=== PATIENT | female | born 1965 | race Caucasian/White ===

== ENCOUNTER 2018-07-09 09:39 | Day surgery (SDC) | payer OTHER ==
[2018-07-06 14:52] LABS: Urine Appearance CLEAR; Urine Bilirubin NEGATIVE (NEG); Urine Blood NEGATIVE (NEG); Urine Color YELLOW; Urine Glucose NEGATIVE (NEG); Urine Protein NEGATIVE (NEG); Urine Specific Gravity 1.025 (1.005-1.030); Urine Urobilinogen 0.2 mg/dL (0.2-1.0)
[2018-07-06 14:55] LABS: Urine Microscopic Reflex NO UMIC
[2018-07-06 14:57] LABS: Absolute Lymphocytes (CBC) 2.4 K/uL (0.7-4.9); Absolute Monocytes 0.7 K/uL (0.1-1.3); Absolute Neutrophil 6.5 K/uL (1.8-8.0); Basophils % 0.3 % (0-1.3); Hematocrit 41.4 % (36.0-45.0); Lymphocytes % 25.1 % (15.3-44.8); MCH 27.9 pg (27.0-35.0); MCV 83.6 fL (80-100); Monocytes % 6.8 % (3.3-12.3); RBC Red Blood Cell Count 4.95 M/uL (3.86-4.86)
[2018-07-06 15:11] LABS: CKMB Creatine Kinase MB < 1.0 ng/mL (0.3-3.6); Creatine Phosphokinase 53 U/L (26-192); Troponin I < 0.02 ng/mL (0.0-0.045)
--- NOTE | 2018-07-06 15:38 | EKG ---
Test Date: 2018-07-06 Test Time: 14:00:29 Administrative Resources Associate: LEATHA MEASUREMENT RESULTS: Intervals: Rate: 78 ME: 124 QRSD: 84 QT: 374 QTc: 426 [place]: P: 18 ME: 124 QRS: -5 T: 49 INTERPRETIVE STATEMENTS: Normal sinus rhythm Normal ECG No previous ECG available for comparison Electronically Signed On 07-06-18 15:37:53 CDT by Tanmay Laird
[2018-07-09 10:08] LABS: Specific Gravity 1.025 (1.005-1.030)
[2018-07-09] MEDS ORDERED: SCOPOLAMINE HYDROBROMIDE PATCH TD ONE (10:20)
[2018-07-09] MEDS ORDERED: Ringers Lactate 1,000 ML IV ONE ×3 (10:20→13:35)
[2018-07-09] MEDS ORDERED: KETOROLAC 30 MG/ML INJ ONE ×2 (10:51→15:26)
[2018-07-09] MEDS ORDERED: MORPHINE 4 MG/ML SYR ONE (11:02)
[2018-07-09] MEDS ORDERED: PROPOFOL 200 MG/20 ML VIAL IV ONE (11:07)
[2018-07-09] MEDS ORDERED: ROCURONIUM 50 MG/5 ML VIAL IV ONE (11:07)
[2018-07-09] MEDS ORDERED: MIDAZOLAM HCL 2 MG/2 ML INJ ONE (11:08)
[2018-07-09] MEDS ORDERED: ONDANSETRON HCL 40 MG/20 ML VIAL ONE (11:08)
[2018-07-09] MEDS ORDERED: DEXAMETHASONE 10 MG/ML VIAL ONE (11:08)
[2018-07-09] MEDS ORDERED: FENTANYL CITR 250 MCG/5 ML ONE (11:08)
[2018-07-09] MEDS ORDERED: LIDOCAINE 2% MPF 5 ML VIAL ONE (11:08)
[2018-07-09] MEDS: CEFAZOLIN/SWI 2gm 2 GM/20 ML SYR IV SCH ×2 (11:56→12:10)
[2018-07-09] MEDS: NA CHLORIDE 0.9% 1,000 ML ONE ×2 (11:56→12:10)
[2018-07-09] MEDS ORDERED: EPHEDRINE SULF 50 MG/10 ML SYR ONE (12:20)
[2018-07-09] MEDS ORDERED: NA CHLORIDE 0.9% 1,000 ML ONE (13:40)
[2018-07-09] MEDS ORDERED: FENTANYL CITR 100 MCG/2 ML ONE (14:29)
[2018-07-09] MEDS ORDERED: CEFAZOLIN/SWI 1gm 1 GM/10 ML SYR ONE (15:14)
[2018-07-09] MEDS ORDERED: METOCLOPRAMIDE 10 MG/2mL INJ ONE (16:33)
[2018-07-09] MEDS ORDERED: ONDANSETRON 4 MG/2 ML VIAL ONE (16:42)
[2018-07-09] MEDS ORDERED: HYDROCODONE/APAP 5/325 MG TAB ONE (18:09)
--- NOTE | 2018-07-10 09:01 | OP ---
Date of Procedure: 07/09/2018 Surgeon: Rashmi Rao MD Doorperson Or Luggage Porter: Tena Mathis. Preoperative Diagnoses: Menorrhagia, pelvic pain, irritative bladder symptoms, mostly overactive jere dder. Postoperative Diagnoses: Menorrhagia, pelvic pain, irritative bladder symptoms, mostly overactive bl adder, adhesions of the omentum, bilateral hydrosalpinges, and sigmoid bowel adhesions den se bladder adhesions. Procedures Performed: 1.Total laparoscopic hysterectomy, bilateral salpingo-oophorectomy. 2.Lysis of omental adhesions and sigmoid adhesions. 3.Vaginal morcellation of the specimen and lysis of omental and sigmoid adhesions. Anesthesia: General endotracheal. Specimens: Uterus, tubes and ovaries, bilateral. Estimated Blood Loss: Less than 100. Condition: Stable. Indications: The patient is a 52-year-old who had heavy periods, pelvic pain, and mixed incontinence . This lady has had an ablation in September of last year after her endometrial curettings were negat nitin, and there was an endometrial polyp. She is overweight and has increased risk for atypia or wendy gnancy. Few months after the ablation, her bleeding recurred at about month 3. 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 So at this time, we discussed the options of depot medroxyprogesterone acetate or a hyster ectomy since she is already post ablation with 2 prior cesareans. The patient desired to have defini tive treatment with hysterectomy. We also talked about removal of tubes and ovaries as needed, and s he was inclined to have her ovaries removed. Description Of Procedure: After informed consent was verified, she was brought to the OR. A 2 g of Ancef was given preop. SCDs were placed. The patient was placed in a supine fashion on the operatin g table. After general anesthesia was given in an endotracheal fashion, she was placed in a dorsal l ithotomy position using Bharath stirrups. The vulva, vagina, perineum, and abdomen were all prepped an d draped in a sterile fashion. Gilliam was placed to drain the bladder, and attempt was made to sound the uterus, but due to the scar, most likely this was difficult and so I wanted to do this under dire ct visualization with the camera, so aborted this, went back up. A 1 cm infraumbilical incision was made with a scalpel using the open laparoscopy technique. The fascia was incised and cut. Edges wer e tagged. The patient's peritoneum was picked up and entered bluntly and S retractors placed. Hasso n introduced. Site of entry was checked, and it was unremarkable. Upper abdominal surface was unrem arkable as well as lower abdominal surface. Just below the umbilicus, there was a large thick omenta l adhesion. There were also adhesions in the midline going towards the bladder and all th e way to the left lower quadrant. These were dense and in multiple layers. These were omental adhes ions, and they were visualized after placing the scope. A 5 mm left lower quadrant port was placed u nder direct vision. No other ports could be placed due to the presence of adhesions, so I went ahead and did this taking down the adhesions in a systematic fashion in a push-spread technique creating w indows and cutting. Once the extensive lysis of adhesions was done here on the omentum, then the adh esions were taken down on the sigmoid colon to the lateral wall, to the infundibulopelvic ligament, a nd to the both tubes. The adhesions on the right side were minimal and were easily taken down. Ther e was a distal hydrosalpinx that was on the left side. There were very dense adhesions all the way i nto the left mesosalpinx. These were all released and normal anatomy was restored. The tube appeare d to be completely devascularized at this point on the left side. There were dense adhesions to the bladder anteriorly. These adhesions were taken down by creating mu ltiple windows and taking them down with the LigaSure as well as sharp scissors. Once the entire jeremy brent was attached to the anterior abdominal wall, the bladder was inspected and the bladder flap was d issected to recreate the planes needed for surgery. Once this was done, the left utero-ovarian ligam ent, mesosalpinx, and left round ligament were taken down. The posterior peritoneum was dissected al l the way to the left uterosacral lateral aspect. This allowed the ureter to fall away. Both the ur eters were traced from the pelvic brim to the ureteric tunnel, and their courses were unaltered. Then, the broad ligament was skeletonized to expose the vessels the anterior vaginal wall was dissected. Precervical fascia was visualized by opening up with push-spread technique and creati ng windows at the level of the bladder flap. Once this was done, the bladder was taken down from the left side for most of the extent that it could be done. Then, on the opposite side, utero-ovarian l igament was taken down and the broad ligament here was taken down round ligament. This wa s also taken down. Then, posterior leaf was dissected to separate of the ureter. Once th is was done, then the bladder flap was cleared up. The bladder was dissected at least 5 cm from wher e it was attached to the uterus. This was done after creating a window behind the adhesion. The adh esions were well visualized as well as the bladder with the help of anatomy. Then, the bladder adhes ions were taken down. The bladder adhesions caused a lot of anatomical distortion at this site. So, there was difficulty visualizing the VCare cup. VCare cup was placed at a later time onc e the laparoscope was introduced. An 18-Liberian dilator was used gradually from size 8, then was dedrick daniel to this point that I was able to place the VCare manipulator without any problems while visualizi ng directly with the help of the scope. Once this was done, we went on to open the posterior broad ligament to the right uterosacral, then di ssecting the vessels and skeletonizing the broad ligament. The bladder flap was detached from its at tachment to the uterus with the help of the bipolar LigaSure by creating a plane distal to the adhesi on where the normal anatomical plane was. Once the adhesions were taken down off the bladder, then v essels were taken down on the right side then on the left side. Initially, there was much difficulty figuring out which the VCare cup was. So, I performed a circumferential cut with a monopolar hook allie cardenas fully understanding that this could be still the cervix and it was. This was left still on the VCare manipulator and then by pushing the placement of the cup, the bladder was dissected down another 2 cm then I was able to remove the cervix with the help of the cutting along the ___ on the VCare cup. Once this was done in a circumferential fashion, then the specimen was detache d prior to the circumferential colpotomy. Both the uterine vessels were taken down as well as the ca rdinal ligaments. The uterine artery on the left side started to bleed and so clips x2 were placed o n this. There was excellent hemostasis. Once the surgery was done to detach the specimen, there wer e 2 specimens, one is the distal cervix and the other is the proximal cervix over the uterus. Then, the left ovary and tube were removed by dissecting the broad ligament and taking down the IP ligament similar dissection opposite side. The distal part of the tube had to be resected since i t was very swollen in order for me to see and perform the surgery. Once this was done, all specimens were handed out for permanent pathology and labeled appropriately. After going vaginally, I used 4 mass clamps to hold onto the specimen and morcellated physically with a #10 blade in a circumferential fashion posteriorly delivered the uterus. Once this was done, abou t 25 minutes to 30 minutes were spent on the morcellation as this patient was big. The small rim of the vaginal cuff appeared to be fairly narrow. Once all this was done, the entire specimen was remov ed. All the ovaries and tubes were retrieved as well. There was good hemostasis on the vaginal cuff . There was a slight posterior wall midline tear. This appeared to be bleeding and so this was to b e repaired along with the colpotomy closure. So, 0 Vicryl suture was taken. After thorough irrigati on and suction of all the pedicles, there was slight bleeding at the left infundibulopelvic ligament pedicle and this was cauterized by picking it up and cauterizing it with the bipolar LigaSure. Once the vaginal cuff was well visualized, two 0 Vicryls were placed and 2 [id number] in the middle for good closure and apposition and excellent hemostasis. No evidence of any electrical, mechanical, or thermal injury to the ureters. While placing the left lower quadrant instrument accidentally there was a slight sigmoid epiploic injury. No evidence of any bowel problems. S o, I went ahead and finished the case. Gas was desufflated after thorough irrigation and suction. A ll pedicles were photographed. Trocars were removed under direct vision. There were 4 trocars in th e left lower quadrant and right lower quadrant were two, 5 mm and then 10 mm was suprapubic. Once al l these was removed, the fascia at the umbilicus was closed with the help of a 3-0 Vicryl [id number] fashion, 2 in simple fashion to close the entire opening. The suprapubic could not b e closed. All the skin incisions were closed with the help of 4-0 Monocryl. Instrument, needle, and sponge counts were done and were correct at the end of the case. The vaginal occlusion bulb ___ as well as the Gilliam was removed, and the patient was recovered from anesthesia and taken to PACU in stable cond ition. STACIE Voice ID: [id number] Report ID: [id number]
== END 2018-07-09 19:15 | disposition home or self-care (01) ==
LOC: OR 09:39
PROVIDERS: ATTEND Obstetrics & Gynecology
PROC: 0UT24ZZ Resection of Bilateral Ovaries, Percutaneous Endoscopic Approach (ICD-10-PCS; 2018-07-09)
PROC: 0UT74ZZ Resection of Bilateral Fallopian Tubes, Percutaneous Endoscopic Approach (ICD-10-PCS; 2018-07-09)
PROC: 0DNU4ZZ Release Omentum, Percutaneous Endoscopic Approach (ICD-10-PCS; 2018-07-09)
PROC: 0UT94ZZ Resection of Uterus, Percutaneous Endoscopic Approach (ICD-10-PCS; principal; 2018-07-09 11:30)
DX: N92.1 Excessive and frequent menstruation with irregular cycle (principal); N70.11 Chronic salpingitis; N83.12 Corpus luteum cyst of left ovary; N83.11 Corpus luteum cyst of right ovary; N72 Inflammatory disease of cervix uteri; N88.8 Other specified noninflammatory disorders of cervix uteri; N83.8 Other noninflammatory disorders of ovary, fallopian tube and broad ligament; K66.0 Peritoneal adhesions (postprocedural) (postinfection); N32.81 Overactive bladder; N32.89 Other specified disorders of bladder; R07.89 Other chest pain; E66.01 Morbid (severe) obesity due to excess calories; Z68.38 Body mass index [BMI] 38.0-38.9, adult; Z90.49 Acquired absence of other specified parts of digestive tract; Z80.1 Family history of malignant neoplasm of trachea, bronchus and lung; Z83.3 Family history of diabetes mellitus
CPT/HCPCS: 36415; 81003; 81025; 82550; 82553; 84484; 85025; 86850; 86900; 86901; 88307; 93005; J0690; J1100; J2250; J2405; J2765; J3010; J7030

== ENCOUNTER 2018-07-13 16:56 | Emergency (ER) | payer OTHER ==
[2018-07-13] MEDS ORDERED: ONDANSETRON 4 MG/2 ML VIAL ONE (17:50)
[2018-07-13] MEDS ORDERED: MORPHINE 4 MG/ML SYR ONE ×2 (17:50→21:45)
[2018-07-13 18:04] LABS: Protime INR 0.98
[2018-07-13 18:05] LABS: Absolute Lymphocytes (CBC) 2.7 K/uL (0.7-4.9); Absolute Monocytes 0.6 K/uL (0.1-1.3); Basophils % 1.3 % (0-1.3); Eosinophils % 2.9 % (0-4.4); Hematocrit 40.5 % (36.0-45.0); Lymphocytes % 31.2 % (15.3-44.8); MCH 28.5 pg (27.0-35.0); MCV 83.1 fL (80-100); MPV 9.1 fL (7.6-11.3); Monocytes % 6.5 % (3.3-12.3); RBC Red Blood Cell Count 4.87 M/uL (3.86-4.86)
[2018-07-13 18:29] LABS: Albumin 3.4 g/dL (3.4-5.0); Bilirubin Direct 0.1 mg/dL (0-0.2); Bilirubin Total 0.5 mg/dL (0.2-1.0); Potassium 4.1 mmol/L (3.5-5.1); Protein, Total 7.3 g/dL (6.4-8.2)
--- NOTE | 2018-07-13 19:47 | RAD REPORT ---
EXAM DESCRIPTION: CT - Abdomen Pelvis W Contrast - 07/13/2018 7:34 pm CLINICAL HISTORY: Abdominal pain, recent hysterectomy COMPARISON: None. TECHNIQUE: Biphasic, helical CT imaging of the abdomen and pelvis was performed following 100 ml non -ionic IV contrast. Oral contrast was given. All CT scans are performed using dose optimization technique as appropriate and may include automated exposure control or mA/KV adjustment according to patient size. FINDINGS: No suspicious findings in the lung bases. Liver shows fatty infiltration pattern. No focal liver finding. Spleen and pancreas show no acute fin dings. Gallbladder is absent. No biliary tree dilatation. Symmetric renal function is seen with no hydronephrosis or suspicious renal mass. No pyelonephritis o r acute renal parenchymal process. No dilated bowel loops or bowel wall thickening. Moderate stool volume seen in the colon. No acute co tomy process. Appendix is normal. Trace amount of free air is present in the bladder. There is a minim al amount of stranding and fluid along the pelvic floor. Minimal stranding adjacent to the bladder. F indings are not outside of normal given the patient's recent hysterectomy. No abscess. No extravasati on of the oral contrast. No bulky lymphadenopathy or mass. No suspicious finding in the abdominal wa ll. A small umbilical hernia is seen. No bladder calculi or significant bladder wall finding. No adre nal abnormality. No suspicious bony findings. IMPRESSION: The minimal amount of air, fluid and stranding along the floor the pelvis and adjacent t o the bladder is not outside of normal range for the very recent hysterectomy procedure. Likewise, changes near the periumbilical anterior abdominal wall within normal limits for recent surg shaq. No abscess, bowel perforation or other surgically emergent finding.
[2018-07-13 20:13] LABS: Urine Blood TRACE (NEG); Urine Glucose NEGATIVE (NEG); Urine Protein NEGATIVE (NEG); Urine Specific Gravity 1.015 (1.005-1.030)
[2018-07-13 21:16] LABS: Urine Bacteria <20 /HPF (<20); Urine Culture Reflex Order NOT NEEDED; Urine RBC <5 /HPF (NONE SEEN)
--- NOTE | 2018-07-13 21:29 | ER ---
Nurse's Notes [facility] Name: Nilam Pham Age: 52 yrs Sex: Female : 1965 Arrival Date: 07/13/2018 Time: 16:57 Bed 20 Private MD: None, None Diagnosis: Unspecified abdominal pain-Post surgical pain Presentation: 07/13 17:10 Presenting complaint: Patient states: Severe lower abdominal pain since hysterectomy hb 07/10. Denies bleeding/fever. Transition of care: patient was not received from another setting of care. Onset of symptoms was July 10, 2018. Risk Assessment: Do you want to hurt yourself or someone else? Patient reports no desire to harm self or others. 17:10 Method Of Arrival: Ambulatory hb 17:10 Acuity: CINDY 3 hb 17:16 Initial Sepsis Screen: Does the patient meet any 2 criteria? No. Patient's initial hj sepsis screen is negative. Does the patient have a suspected source of infection? No. Patient's initial sepsis screen is negative. Care prior to arrival: None. Triage Assessment: 17:15 General: Appears in no apparent distress. uncomfortable, obese, Behavior is calm, hj cooperative, appropriate for age. Pain: Complains of pain in abdomen. CLINICAL NUTRITION MANAGER: 17:12 LMP N/A - Hysterectomy hb Historical: - Allergies: 17:13 No Known Allergies; hb - PSHx: 17:13 Hysterectomy; hb - Immunization history:: Adult Immunizations up to date. - Social history:: Smoking status: Patient/guardian denies using tobacco. - Ebola Screening: : No symptoms or risks identified at this time. Screenin:15 Abuse screen: Denies threats or abuse. Denies injuries from another. Nutritional hj screening: No deficits noted. Tuberculosis screening: No symptoms or risk factors identified. Fall Risk None identified. Assessment: 17:18 General: Appears in no apparent distress. uncomfortable, obese, Behavior is calm, hj cooperative, appropriate for age. Pain: Complains of pain in abdomen Pain currently is 9 out of 10 on a pain scale. Neuro: Level of Consciousness is awake, alert, obeys commands, Oriented to person, place, time, situation, Appropriate for age. Cardiovascular: Capillary refill < 3 seconds Patient's skin is warm and dry. Respiratory: Airway is patent Respiratory effort is even, unlabored, Respiratory pattern is regular, symmetrical. GI: Abdomen is obese, no bleeding on post surgical site; Bowel sounds present X 4 quads. Reports upper abdominal pain. : No signs and/or symptoms were reported regarding the genitourinary system. EENT: No signs and/or symptoms were reported regarding the EENT system. Derm: No signs and/or symptoms reported regarding the dermatologic system. Musculoskeletal: No signs and/or symptoms reported regarding the musculoskeletal system. 18:00 Reassessment: Patient and/or family updated on plan of care and expected duration. Pain hj level reassessed. Patient is alert, oriented x 3, equal unlabored respirations, skin warm/dry/pink. pt finished contrast; rn imaging informed;. 18:29 Reassessment: Patient and/or family updated on plan of care and expected duration. Pain hj level reassessed. Patient is alert, oriented x 3, equal unlabored respirations, skin warm/dry/pink. awaiting results and POC; family in room;. 19:23 Reassessment: Patient appears in no apparent distress at this time. No changes from ak1 previously documented assessment. Patient and/or family updated on plan of care and expected duration. Pain level reassessed. pt and family informed of wait to go to CT at 1999 and the expected time for results. will continue to monitor. 20:11 Reassessment: pt returned from CT. waiting on CT results. ak1 Vital Signs: 17:12 BP 181 / 101; Pulse 78; Resp 16; Temp 98.3; Pulse Ox 100% on R/A; Weight 115.21 kg; hb Height 5 ft. 8 in. (172.72 cm); Pain 7/10; 18:01 BP 136 / 81; Pulse 73; Resp 18; Pulse Ox 97% on R/A; hj 20:12 BP 114 / 85; Pulse 70; Resp 16; Temp 98.3; Pulse Ox 97% on R/A; ak1 21:41 BP 144 / 97; Pulse 70; Resp 18; Temp 98.2(O); Pulse Ox 95% on R/A; oe 17:12 Body Mass Index 38.62 (115.21 kg, 172.72 cm) hb ED Course: 16:57 Patient arrived in ED. sb2 16:57 None, None is Private Physician. sb2 17:12 Triage completed. hb 17:12 Arm band placed on left wrist. hb 17:14 Doug Bello, RN is Primary Nurse. 17:16 Dieudonne Griffin NP is PHCP. pm1 17:16 Luis Sanderson MD is Attending Physician. pm1 17:16 Patient has correct armband on for positive identification. Placed in gown. Bed in low hj position. Call light in reach. Side rails up X 1. 17:31 Initial lab(s) drawn, by me, sent to lab. Inserted saline lock: 22 gauge in right hj antecubital area, using aseptic technique. Blood collected. 19:22 No provider procedures requiring assistance completed. ak1 19:34 CT Abd/Pelvis - W/Contrast In Process Unspecified. EDMS 21:27 Rashmi Rao MD is Referral Physician. pm1 21:44 IV discontinued, intact, bleeding controlled, No redness/swelling at site. Pressure ak1 dressing applied. Administered Medications: 17:31 Drug: morphine 4 mg Route: IVP; Site: right antecubital; hj 18:31 Follow up: Response: No adverse reaction; Pain is decreased hj 17:31 Drug: Zofran 4 mg Route: IVP; Site: right antecubital; hj 18:32 Follow up: Response: No adverse reaction hj 21:43 Drug: morphine 4 mg Route: IVP; Site: right antecubital; ak1 21:44 Follow up: Response: No adverse reaction ak1 Outcome: 21:28 Discharge ordered by MD. pm1 21:44 Discharged to home via wheelchair, with family. ak1 21:44 Condition: good 21:44 Discharge instructions given to patient, family, Instructed on discharge instructions, follow up and referral plans. no drinking with medication, no driving heavy equipment, medication usage, Demonstrated understanding of instructions, follow-up care, medications, Prescriptions given X 1. 21:48 Patient left the ED. ak1 Signatures: Dispatcher [employer] EDOH Sharon Davies RN RN ak1 Doug Bello RN RN Dieudonne Griffin NP SCRAP DROP OPERATOR pm1 Debi Mckee RN RN Ambrose Demarco Sheri sb2 Corrections: (The following items were deleted from the chart) 17:19 17:18 GI: Bowel sounds present X 4 quads. Reports upper abdominal pain, hj hj 21:45 21:41 BP 144 / 97; Pulse 18bpm; Resp 70bpm; Pulse Ox 95% RA; Temp 98.2F Oral; oe oe
--- NOTE | 2018-07-13 21:29 | EDPHYS ---
Physician Documentation [facility] Name: Nilam Pham Age: 52 yrs Sex: Female : 1965 Arrival Date: 07/13/2018 Time: 16:57 Bed 20 Private MD: None, None ED Physician Luis Sanderson HPI: 07/13 18:00 This 52 yrs old Female presents to ER via Ambulatory with complaints of Post pm1 Surgical Pain. 18:00 The patient presents with abdominal pain in the lower abdomen, in the periumbilical pm1 area. Onset: The symptoms/episode began/occurred 3 day(s) ago. The symptoms do not radiate. Associated signs and symptoms: Pertinent negatives: nausea, vomiting, and diarrhea, chest pain, dysuria, fever, headache, shortness of breath. Modifying factors: The symptoms are alleviated by nothing, the symptoms are aggravated by palpation. Severity of pain: in the emergency department the pain is actually worse. The patient has not experienced similar symptoms in the past. The patient has been recently seen by a physician: Dr. Rao. Patient with complete hysterectomy 3 days ago. Patient saw surgeon today and referred to the ER for evaluation and imaging. 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 - Social history:: Smoking status: Patient/guardian denies using tobacco. - Ebola Screening: : No symptoms or risks identified at this time. ROS: 18:00 Constitutional: Negative for fever, chills, and weight loss, Eyes: Negative for injury, pm1 pain, redness, and discharge, ENT: Negative for injury, pain, and discharge, Neck: Negative for injury, pain, and swelling, Cardiovascular: Negative for chest pain, palpitations, and edema, Respiratory: Negative for shortness of breath, cough, wheezing, and pleuritic chest pain. 18:00 Back: Negative for injury and pain, : Negative for injury, bleeding, discharge, and swelling, MS/Extremity: Negative for injury and deformity, Skin: Negative for injury, rash, and discoloration, Neuro: Negative for headache, weakness, numbness, tingling, and seizure. 18:00 Abdomen/GI: Positive for abdominal pain, Negative for nausea, vomiting, and diarrhea, diarrhea, constipation, black/tarry stool, rectal pain, rectal bleeding. Exam: 18:00 Constitutional: This is a well developed, well nourished patient who is awake, alert, pm1 and in no acute distress. Head/Face: Normocephalic, atraumatic. Eyes: Pupils equal round and reactive to light, extra-ocular motions intact. Lids and lashes normal. Conjunctiva and sclera are non-icteric and not injected. Cornea within normal limits. Periorbital areas with no swelling, redness, or edema. ENT: Nares patent. No nasal discharge, no septal abnormalities noted. Tympanic membranes are normal and external auditory canals are clear. Oropharynx with no redness, swelling, or masses, exudates, or evidence of obstruction, uvula midline. Mucous membranes moist. Neck: Trachea midline, no thyromegaly or masses palpated, and no cervical lymphadenopathy. Supple, full range of motion without nuchal rigidity, or vertebral point tenderness. No Meningismus. Chest/axilla: Normal chest wall appearance and motion. Nontender with no deformity. No lesions are appreciated. Cardiovascular: Regular rate and rhythm with a normal S1 and S2. No gallops, murmurs, or rubs. Normal PMI, no JVD. No pulse deficits. Respiratory: Lungs have equal breath sounds bilaterally, clear to auscultation and percussion. No rales, rhonchi or wheezes noted. No increased work of breathing, no retractions or nasal flaring. 18:00 Back: No spinal tenderness. No costovertebral tenderness. Full range of motion. Skin: Warm, dry with normal turgor. Normal color with no rashes, no lesions, and no evidence of cellulitis. MS/ Extremity: Pulses equal, no cyanosis. Neurovascular intact. Full, normal range of motion. 18:00 Abdomen/GI: Inspection: abdomen appears normal, scar(s), are noted in the small well healing surgical scars without signs of infection present at umbilical area, right lower quadrant and left lower quadrant, suprapubic area, Bowel sounds: normal, Palpation: soft, mild tenderness to umbilical area and suprapubic area. Pain reproduced with lightly brushing the areas of incision with back of hand, mass, is not appreciated, rebound tenderness, is not appreciated. 18:00 Neuro: Orientation: is normal, Motor: is normal, moves all fours, Gait: is steady, at a normal pace, without difficulty. Vital Signs: 17:12 BP 181 / 101; Pulse 78; Resp 16; Temp 98.3; Pulse Ox 100% on R/A; Weight 115.21 kg; hb Height 5 ft. 8 in. (172.72 cm); Pain 7/10; 18:01 BP 136 / 81; Pulse 73; Resp 18; Pulse Ox 97% on R/A; hj 20:12 BP 114 / 85; Pulse 70; Resp 16; Temp 98.3; Pulse Ox 97% on R/A; ak1 21:41 BP 144 / 97; Pulse 70; Resp 18; Temp 98.2(O); Pulse Ox 95% on R/A; oe 17:12 Body Mass Index 38.62 (115.21 kg, 172.72 cm) hb MDM: 17:24 Patient medically screened. pm1 21:17 Physician consultation: Rashmi Rao MD was called at 21:22, was contacted at pm1 21:22, regarding patient's condition, follow up in the office. 21:27 Data reviewed: vital signs. Data interpreted: Pulse oximetry: on room air is 97 %. pm1 Interpretation: normal. Counseling: I had a detailed discussion with the patient and/or guardian regarding: the historical points, exam findings, and any diagnostic results supporting the discharge/admit diagnosis, lab results, radiology results, the need for outpatient follow up, Dr. Rao, to return to the emergency department if symptoms worsen or persist or if there are any questions or concerns that arise at home. 07/13 17:29 Order name: Basic Metabolic Panel; Complete Time: 19:55 pm1 07/13 17:29 Order name: CBC with Diff; Complete Time: 19:55 pm1 07/13 17:29 Order name: Creatinine for Radiology; Complete Time: 19:55 pm1 07/13 17:29 Order name: Hepatic Function; Complete Time: 19:55 pm1 07/13 17:29 Order name: Lipase; Complete Time: 19:55 pm1 07/13 17:29 Order name: PT-INR; Complete Time: 19:55 pm1 07/13 17:29 Order name: CT Abd/Pelvis - W/Contrast; Complete Time: 19:55 pm1 07/13 17:29 Order name: IV Saline Lock; Complete Time: 17:42 pm1 07/13 17:29 Order name: Labs collected and sent; Complete Time: 17:42 pm1 07/13 17:29 Order name: Urine Dipstick--Ancillary (enter results); Complete Time: 20:31 ss 07/13 20:30 Order name: Urine Microscopic Only; Complete Time: 21:27 ak1 Administered Medications: 17:31 Drug: morphine 4 mg Route: IVP; Site: right antecubital; hj 18:31 Follow up: Response: No adverse reaction; Pain is decreased hj 17:31 Drug: Zofran 4 mg Route: IVP; Site: right antecubital; hj 18:32 Follow up: Response: No adverse reaction hj 21:43 Drug: morphine 4 mg Route: IVP; Site: right antecubital; ak1 21:44 Follow up: Response: No adverse reaction ak1 Disposition: 07/13/18 21:28 Discharged to Home. Impression: Unspecified abdominal pain - Post surgical pain. - Condition is Stable. - Discharge Instructions: Abdominal Pain, Adult. - Prescriptions for Tramadol 50 mg Oral Tablet - take 1 tablet by ORAL route every 8 hours as needed; 20 tablet. - Medication Reconciliation Form, Thank You Letter, Antibiotic Education, Prescription Opioid Use form. - Follow up: Emergency Department; When: As needed; Reason: Worsening of condition. Follow up: Rashmi Rao MD; When: 2 - 3 days; Reason: Recheck today's complaints, Continuance of care, Re-evaluation by your physician. - Problem is new. - Symptoms have improved. Signatures: Dispatcher [employer] EDMS Sharon Davies RN RN ak1 Doug Bello RN RN hj Marinas, Patrick, FRED DAM WORKER pm1 Debi Mckee RN RN Corrections: (The following items were deleted from the chart) 21:48 21:28 07/13/2018 21:28 Discharged to Home. Impression: Unspecified abdominal pain - ak1 Post surgical pain. Condition is Stable. Forms are Medication Reconciliation Form, Thank You Letter, Antibiotic Education, Prescription Opioid Use. Follow up: Emergency Department; When: As needed; Reason: Worsening of condition. Follow up: Rashmi Rao; When: 2 - 3 days; Reason: Recheck today's complaints, Continuance of care, Re-evaluation by your physician. Problem is new. Symptoms have improved. pm1
== END 2018-07-13 21:48 | disposition home or self-care (01) ==
LOC: ER 16:56
DX: G89.18 Other acute postprocedural pain (principal); Z90.710 Acquired absence of both cervix and uterus
CPT/HCPCS: 36415; 74177; 80048; 80076; 81003; 81015; 83690; 85025; 85610; 96374; 96375; 99284; J2405; Q9967

== ENCOUNTER 2022-01-25 20:40 | Emergency (ER) | payer SELFPAY ==
--- OUTSIDE RECORDS SUMMARY | 2022-01-25 20:43 | XMS REPORT | Continuity of Care Document ---
:1965 Author Organization [facility] t Address [address] [place] [address] Care Team Providers Name Role Phone Unavailable Unavailable Unavailable Problems This patient has no known problems. Allergies, Adverse Reactions, Alerts This patient has no known allergies or adverse reactions. Medications This patient has no known medications. Procedures This patient has no known procedures. Results This patient has no known results.
[2022-01-25 23:10] LABS: Absolute Lymphocytes (CBC) 4.2 K/uL (0.7-4.9); Hematocrit 44.1 % (36.0-45.0); Lymphocytes % 41.7 % (15.3-44.8); RBC Red Blood Cell Count 5.36 M/uL (3.86-4.86)
[2022-01-25] MEDS ORDERED: MAGNES/ALUMIN/SIMET 30ML UCUP ONE (23:12)
[2022-01-25] MEDS ORDERED: LIDOCAINE VISCOUS 2% SOLN 15 ML UDC ONE (23:12)
--- NOTE | 2022-01-26 01:02 | EDPHYS ---
Physician Documentation [facility] Name: Nilam Nichole Age: 56 yrs Sex: Female : 1965 Arrival Date: 01/25/2022 Time: 20:46 Bed 20 Private MD: ED Physician Wilfred Rojo HPI: 01/25 21:08 This 56 yrs old Female presents to ER via Ambulatory with complaints of Chest Pain > 30 rn y/o. 21:08 The patient or guardian reports chest pain that is located primarily in the substernal rn area. Onset: 3 hour(s) ago, at 18:00. The pain does not radiate. Associated signs and symptoms: Pertinent negatives: abdominal pain, cough, diaphoresis, headache, lower extremity swelling, lightheadedness, palpitations, shortness of breath, syncope, vomiting. The chest pain is described as "pain". Duration: The patient or guardian reports a single episode, that is still ongoing. Modifying factors: The symptoms are alleviated by nothing. the symptoms are aggravated by nothing. Severity of pain: At its worst the pain was mild in the emergency department the pain is unchanged. The patient has experienced similar episodes in the past, a few times. The patient has not recently seen a physician. Pt reports central chest pain that began at 1800 tonight. Not changing. No radiation. No fever/cough/sob. No abd pain. No trauma. Reports began after working on her taxes. No hx of dvt/PE. No recent surgery.. 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 - Social history:: Smoking status: Patient denies any tobacco usage or history of. - Family history:: not pertinent. - Hospitalizations: : No recent hospitalization is reported. ROS: 21:08 Constitutional: Negative for fever, chills, and weight loss, Eyes: Negative for injury, rn pain, redness, and discharge, Neck: Negative for injury, pain, and swelling, Cardiovascular: + chest pain Respiratory: Negative for shortness of breath, cough, wheezing, and pleuritic chest pain, Abdomen/GI: Negative for abdominal pain, nausea, vomiting, diarrhea, and constipation, Back: Negative for injury and pain, : Negative for injury, bleeding, discharge, and swelling, MS/Extremity: Negative for injury and deformity, Skin: Negative for injury, rash, and discoloration, Neuro: Negative for headache, weakness, numbness, tingling, and seizure. Exam: 21:03 ECG was reviewed by the Attending Physician. rn 21:08 Constitutional: This is a well developed, well nourished patient who is awake, alert, rn and in no acute distress. Head/Face: Normocephalic, atraumatic. Eyes: Periorbital areas with no swelling, redness, or edema. Cardiovascular: Regular rate and rhythm. No pulse deficits. Respiratory: Speaking full sentences, unlabored. No increased work of breathing, no retractions or nasal flaring. Abdomen/GI: Soft, non-tender, neg son Skin: Warm, dry MS/ Extremity: Pulses equal, no cyanosis. Neurovascular intact. Full, normal range of motion. Equal circumference. Neuro: Awake and alert, GCS 15 Vital Signs: 20:59 BP 182 / 84; Pulse 76; Resp 18; Temp 97.9; Pulse Ox 99% ; Weight 111.13 kg; Height 5 ab2 ft. 7 in. (170.18 cm); Pain 6/10; 21:30 BP 134 / 82; Pulse 75; Resp 18; Pulse Ox 98% ; Pain 3/10; ag7 22:00 BP 148 / 91; Pulse 75; Resp 18; Pulse Ox 98% ; Pain 3/10; ag7 20:59 Body Mass Index 38.37 (111.13 kg, 170.18 cm) ab2 MDM: 20:46 Patient medically screened. rn 22:45 ED course: Orders not crossing over, in downtime, possible delay in care. rn 22:58 ED course: EKG normal, D-dimer neg. CXR shows perihilar interstitial prominence, rn patient reports just began coughing today. . 01/26 00:02 ED course: Lab gave me verbal results of trop 4.0 and repeat 4.5, which are negative, rn and were 2 hours apart. . 00:04 ED course: Lab now states d-dimer has not been performed, not sure which result was rn faxed to me then, they are running now.. 00:31 Differential diagnosis: acute pericarditis, anxiety, coronary artery disease chest wall rn pain, costochondritis, gastritis, gastroesophageal reflux disease (GERD), pericarditis, pneumonia, pneumothorax, pulmonary embolus, stable angina. HEART Score: History: Slightly Suspicious (0), ECG: Normal (0), Age: > 45 and < 65 years (1), Risk Factors: No Risk Factors Known (0), Troponin: < or = 1 x Normal Limit (0), Total Score = 1. Data reviewed: vital signs, nurses notes, lab test result(s), EKG, radiologic studies, plain films, and as a result, I will discharge patient. Counseling: I had a detailed discussion with the patient and/or guardian regarding: the historical points, exam findings, and any diagnostic results supporting the discharge/admit diagnosis, lab results, radiology results, the need for outpatient follow up, to return to the emergency department if symptoms worsen or persist or if there are any questions or concerns that arise at home. Special discussion: Based on the patient's history, exam, and Dx evaluation, there is no indication for emergent intervention or inpatient Tx. It is understood by the patient/guardian that if the Sx's persist or worsen they need to return immediately for re-evaluation. I discussed with the patient/guardian in detail that at this point there is no indication for admission to the hospital. It is understood, however, that if the symptoms persist or worsen the patient needs to return immediately for re-evaluation. 01:01 ED course: repeat d-dimer negative. Vitals stable. Will dc home with pcp and medical technologist prn f/u. Return precautions given and understood.. 01/25 20:56 Order name: Basic Metabolic Panel rn 01/25 20:56 Order name: CBC with Diff rn 01/25 20:56 Order name: D-Dimer rn 01/25 20:56 Order name: Troponin HS rn 01/25 20:56 Order name: XRAY Chest (1 view) rn 01/25 22:53 Order name: Troponin High Sensitivity rn 01/25 20:56 Order name: EKG; Complete Time: 20:57 rn 01/25 20:56 Order name: Cardiac monitoring; Complete Time: 21:03 rn 01/25 20:56 Order name: EKG - Nurse/Tech; Complete Time: 21:03 rn 01/25 20:56 Order name: IV Saline Lock; Complete Time: : rn 01/25 20:56 Order name: Labs collected and sent; Complete Time: : rn 01/25 20:56 Order name: O2 Per Protocol; Complete Time: : rn 01/25 20:56 Order name: O2 Sat Monitoring; Complete Time: 21:03 rn EC/15 21:03 Rate is 75 beats/min. Rhythm is regular. QRS [place] is Normal. [place] interval is normal. QRS rn interval is normal. QT interval is normal. No Q waves. T waves are Normal. No ST changes noted. Clinical impression: Normal ECG. Interpreted by me. Reviewed by me. Administered Medications: 23:17 Drug: GI Cocktail without - (Maalox Suspension 30 ml, Lidocaine Liquid 2 % 15 ag7 ml) Route: PO; 23:37 Follow up: Response: No adverse reaction ag7 Disposition Summary: 01/26/22 01:02 Discharge Ordered Location: Home rn Problem: new rn Symptoms: have improved rn Condition: Stable rn Diagnosis - Chest pain, unspecified rn Followup: rn - With: Private Physician - When: As needed - Reason: Recheck today's complaints, Re-evaluation by your physician Discharge Instructions: - Discharge Summary Sheet rn - Nonspecific Chest Pain, Adult rn Forms: - Medication Reconciliation Form rn - Thank You Letter rn - Antibiotic rn training - Prescription Opioid Use rn Prescriptions: - Zithromax Z-Helio 250 mg Oral Tablet - take 1 tablet by ORAL route as directed for 5 days Day 1 - take two (2) tablets rn one time. Day 2, 3, 4 , 5 take one (1) tablet once daily.; 6 tablet; Refills: 0, Product Selection Permitted Signatures: Dispatcher [employer] Wilfred Johnson MD MD rn Bleininger, Alexis ab2 Glenn, Angela RN RN ag7
--- NOTE | 2022-01-26 01:02 | ER ---
Nurse's Notes [facility] Name: Nilam Nichole Age: 56 yrs Sex: Female : 1965 Arrival Date: 01/25/2022 Time: 20:46 Bed 20 Private MD: Diagnosis: Chest pain, unspecified Presentation: 01/25 20:59 Chief complaint: Patient states: "I started having sharp chest pain and SOB around ab2 1800.". Coronavirus screen: Vaccine status: Patient reports being unvaccinated. Client denies travel out of the [place] in the last 14 days. At this time, the client does not indicate any symptoms associated with coronavirus-19. Ebola Screen: Patient negative for fever greater than or equal to 101.5 degrees Fahrenheit, and additional compatible Ebola Virus Disease symptoms Patient denies exposure to infectious person. Patient denies travel to an Ebola-affected area in the 21 days before illness onset. No symptoms or risks identified at this time. Initial Sepsis Screen: Does the patient meet any 2 criteria? No. Patient's initial sepsis screen is negative. Does the patient have a suspected source of infection? No. Patient's initial sepsis screen is negative. Risk Assessment: Do you want to hurt yourself or someone else? Patient reports no desire to harm self or others. Onset of symptoms is unknown. 20:59 Method Of Arrival: Ambulatory ab2 20:59 Acuity: CINDY 3 ab2 Triage Assessment: 21:01 General: Appears in no apparent distress. uncomfortable, Behavior is calm, cooperative, ab2 appropriate for age. Pain: Complains of pain in chest. EENT: No deficits noted. No signs and/or symptoms were reported regarding the EENT system. Neuro: Level of Consciousness is awake, alert, obeys commands, Oriented to person, place, time, situation, Appropriate for age Technical Producer are equal bilaterally Moves all extremities. Gait is steady, Speech is normal. Cardiovascular: Reports chest pain, shortness of breath, Heart tones S1 S2 present Patient's skin is warm and dry. Respiratory: No deficits noted. Airway is patent Respiratory effort is even, unlabored, Respiratory pattern is regular, symmetrical. GI: No deficits noted. No signs and/or symptoms were reported involving the gastrointestinal system. : No deficits noted. No signs and/or symptoms were reported regarding the genitourinary system. Derm: Skin is intact, is healthy with good turgor, Skin is pink, warm \\T\\ dry. Musculoskeletal: No deficits noted. No signs and/or symptoms reported regarding the musculoskeletal system. 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 - Social history:: Smoking status: Patient denies any tobacco usage or history of. - Family history:: not pertinent. - Hospitalizations: : No recent hospitalization is reported. Screenin:03 Abuse screen: Denies threats or abuse. Denies injuries from another. Nutritional ab2 screening: No deficits noted. Tuberculosis screening: No symptoms or risk factors identified. Fall Risk None identified. Assessment: 21:03 Pain: Pain does not radiate. Pain began 3 hours ago. ab2 21:15 General: Appears in no apparent distress. Behavior is calm, cooperative, appropriate ag7 for age. Pain: Complains of pain in mid-sternal area Pain currently is 7 out of 10 on a pain scale. Quality of pain is described as sharp, Pain began suddenly, Is continuous, Alleviated by nothing. Neuro: Level of Consciousness is awake, alert, obeys commands, Oriented to person, place, situation, Appropriate for age. Cardiovascular: Reports chest pain, Denies nausea, shortness of breath, vomiting, Heart tones S1 S2 present Capillary refill < 3 seconds in right in left in bilateral fingers toes Patient's skin is warm and dry. Pulses are 2+ in right radial artery, right dorsalis pedis artery, left radial artery, left dorsalis pedis artery, left carotid pulse and right carotid pulse Edema is absent. Rhythm is regular. Respiratory: Airway is patent Trachea midline Respiratory effort is even, unlabored, Respiratory pattern is regular, symmetrical, Breath sounds are clear bilaterally. 22:07 Reassessment: Patient and/or family updated on plan of care and expected duration. Pain ag7 level reassessed. Patient is alert, oriented x 3, equal unlabored respirations, skin warm/dry/pink. mid sternal chest pain 3/10 Patient states feeling better. Patient states symptoms have improved. 23:07 Reassessment: Patient and/or family updated on plan of care and expected duration. Pain ag7 level reassessed. Patient is alert, oriented x 3, equal unlabored respirations, skin warm/dry/pink. 01/26 00:07 Reassessment: No changes from previously documented assessment. ag7 01:07 Reassessment: No changes from previously documented assessment. ag7 Vital Signs: 01/25 20:59 BP 182 / 84; Pulse 76; Resp 18; Temp 97.9; Pulse Ox 99% ; Weight 111.13 kg; Height 5 ab2 ft. 7 in. (170.18 cm); Pain 6/10; 21:30 BP 134 / 82; Pulse 75; Resp 18; Pulse Ox 98% ; Pain 3/10; ag7 22:00 BP 148 / 91; Pulse 75; Resp 18; Pulse Ox 98% ; Pain 3/10; ag7 20:59 Body Mass Index 38.37 (111.13 kg, 170.18 cm) ab2 ED Course: 20:46 Patient arrived in ED. bp1 20:46 Wilfred Rojo MD is Attending Physician. rn 20:54 Zita Carney RN is Primary Nurse. ag7 21:01 Triage completed. ab2 21:01 Arm band placed on right wrist. ab2 21:02 No provider procedures requiring assistance completed. Inserted saline lock: 20 gauge ab2 in right antecubital area, using aseptic technique. Blood collected. Patient maintains SpO2 saturation greater than 95% on room air. 21:03 Patient has correct armband on for positive identification. Bed in low position. Call ab2 light in reach. Side rails up X2. monitor car operator on. Pulse ox on. NIBP on. 21:20 Troponin HS Sent. vc1 21:20 D-Dimer Sent. vc1 21:20 CBC with Diff Sent. vc1 21:20 Basic Metabolic Panel Sent. vc1 23:37 Troponin High Sensitivity Sent. ag7 01/26 00:14 XRAY Chest (1 view) In Process Unspecified. EDMS 01:29 IV discontinued, intact, bleeding controlled, No redness/swelling at site. Pressure ag7 dressing applied. Administered Medications: 01/25 23:17 Drug: GI Cocktail without - (Maalox Suspension 30 ml, Lidocaine Liquid 2 % 15 ag7 ml) Route: PO; 23:37 Follow up: Response: No adverse reaction ag7 Outcome: 01/26 01:02 Discharge ordered by . rn 01:28 Discharged to home ambulatory. ag7 01:28 Condition: stable 01:28 Discharge instructions given to patient, Instructed on discharge instructions, follow up and referral plans. medication usage, Demonstrated understanding of instructions, follow-up care, medications, Prescriptions given X 1. 01:33 Patient left the ED. ag7 Signatures: Dispatcher [employer] EDMS Wilfred Rojo MD MD rn [place], Brittany bp1 Bleininger, Alexis ab2 Cal[place], Vanessa RN RN vc1 Zita Carney, RN RN ag7
[2022-01-26 04:39] VITALS: TEMP 97.9
[2022-01-26 04:41] VITALS: O2SAT 98
[2022-01-26 04:43] VITALS: BP 148/91
--- NOTE | 2022-01-28 10:45 | RAD REPORT ---
EXAM DESCRIPTION: RAD - Chest Single View - 01/26/2022 12:13 am CLINICAL HISTORY: 56 years Female, CHEST PAIN TECHNIQUE: 1 view (Single frontal view of the chest) COMPARISON: None. FINDINGS: Shallow inspiratory effort, patient's body habitus and underexposure limits detail evaluat ion of the lung bases. LINES AND TUBES: None. CARDIOVASCULAR STRUCTURES: ormal heart size. No pulmonary venous congestion. LUNGS: No confluent areas of acute consolidation. PLEURA: No layering pleural effusions. No pneumothorax. BONES: No acute osseous abnormality of the thorax. IMPRESSION: 1. Suboptimal evaluation of lung bases as described. Bibasilar atelectasis/consolidati on plus or minus small effusions cannot be entirely excluded. 2. Otherwise, no acute cardiopulmonary disease. Electronically signed by: Juancho Solo MD 01/26/2022 12:23 AM CDT Due to temporary technical issues with the PACS/Fluency reporting system, reports are being signed by the in house radiologist without review as a courtesy to ensure prompt reporting. The interpreting r adiologist is fully responsible for the content of the report.
== END 2022-01-26 01:33 | disposition home or self-care (01) ==
LOC: ER 20:40
DX: R07.9 Chest pain, unspecified (principal)
CPT/HCPCS: 36415; 71045; 80048; 84484; 85025; 85379; 93005; 99285